=== PATIENT | female | born 1985 | race Two or more races ===

== ENCOUNTER → 2024-11-11 | Emergency (ER) | payer OTHER ==
[~2024-11-11] VITALS: Ht 165.1 cm; Wt 57.2 kg
[~2024-11-11] MED LIST: 0.9 % SODIUM CHLORIDE 1,000 ML IV SCH; ACETAMINOPHEN 325 MG TABLET PO ONE; DEXAMETHASONE 4 MG TABLET PO STA; DEXAMETHASONE SODIUM PHOSPHATE 4 MG/ML VIAL ONE; DIPHENHYDRAMINE HCL 50 MG/ML VIAL 1ML IM STA; DIPHENHYDRAMINE HCL 50 MG/ML VIAL 1ML ONE; FAMOTIDINE/PF 20 MG in 0.9 % SODIUM CHLORIDE 8 ML IV PUSH ONE; FAMOTIDINE/PF 20 MG/2 ML VIAL ONE; ONDANSETRON HCL 2 MG/ML VIAL IV ONE; ONDANSETRON HCL 2 MG/ML VIAL ONE
[2024-11-11 21:44] LABS: BASO % 0.4 % (0.1-1.2); EOS # 0.10 (0.04-0.54); EOS % 1.4 % (0.7-7.0); LYMPH # 1.78 (1.18-3.74); LYMPH % 24.5 % (19.3-53.1); MEAN PLATELET VOLUME 10.10 fl (9.4-12.4); MONO # 0.65 (0.24-0.82); MONO % 8.9 % (4.7-12.5); NEUT # 4.70 (1.56-6.13); NEUT % 64.5 % (34.0-71.1); RED CELL DISTRIBUTION WIDTH 14.6 % (11.6-14.4)
[2024-11-11 22:08] LABS: INR 1.06
[2024-11-11 22:12] LABS: URINE APPEARANCE Clear; URINE BILIRRUBIN Negative (NEGATIVE); URINE BLOOD Negative; URINE COLOR Yellow; URINE GLUCOSE Negative (NEGATIVE); URINE KETONE 15 (NEGATIVE); URINE LEUKOCYTE Negative; URINE NITRATE Negative; URINE PROTEIN Negative (NEGATIVE); URINE UROBILINOGEN 0.2 E.U./dl
[2024-11-11 22:17] LABS: URINE BACTERIA 1215.5 uL (0.0-1933); URINE EPITHELIAL CELLS 13.5 uL (0.0-38.8); URINE RBC 2.7 uL (0.0-20.8); URINE WBC 8.1 uL (0.0-23.2)
[2024-11-11 22:23] LABS: ALT/SGPT 24 U/L (12-78); AST/SGOT 14 U/L (15-37); BILIRUBIN TOTAL 0.49 mg/dL (0.3-1.2); BILIRUBIN,CONJUGATED 0.17 mg/dL (0.0-0.2); BUN CREA RATIO 15 (7.0-25.0); CREATININE SERUM 0.91 mg/dL (0.55-1.02); GFR 68.47; GLOBULINA 3.5 G/DL (2.4-3.5); GLUCOSE FASTING 92 mg/dL (65-100); OSMOLALITY SERUM 283 MOSM/KG (275-295)
[2024-11-11 22:26] LABS: URINE CAST 0.00 uL (0.0-1.40)
== END | disposition home or self-care (01) ==
LOC: ER 19:05
PROVIDERS: Physician Assistant Medical
DX: R10.84 Generalized abdominal pain (principal); G43.909 Migraine, unspecified, not intractable, without status migrainosus; Z88.6 Allergy status to analgesic agent; Z88.8 Allergy status to other drugs, medicaments and biological substances